=== PATIENT | female | born 1985 | race Two or more races ===

== ENCOUNTER → 2024-10-10 | Outpatient (CLI) | payer OTHER, SELFPAY ==
--- NOTE | 2024-10-10 14:00 | XR_ITS ---
Examination: Breast ultrasound, unilateral, left complete Date and time of exam: October 10, 2024 1414 hrs. Indications: Left breast palpable mass post biopsy outside examination July 2024, left breast sonogram April 14, 2024 10:00 oval mass circumscribed 3.3 x 1.5 x 3.4 cm Technique: Real-time holden scale ultrasonographic imaging performed left breast including all 4 quadrants as well as nipple retroareolar and axillary region. Findings: Retroareolar solid mass circumscribed 3.1 x 1.8 x 3.0 cm Impression: BI-RADS Category 3: Probably benign findings 3 to 6 month continued left breast sonogram follow-up strongly advised
== END | disposition home or self-care (01) ==
LOC: SDIM 13:49
PROVIDERS: PCP Family Medicine; Referring Provider Surgery; Visit Provider Surgery
DX: N63.22 Unspecified lump in the left breast, upper inner quadrant (principal)
CPT/HCPCS: 76641

== ENCOUNTER → 2024-11-15 | Outpatient (CLI) | payer OTHER, SELFPAY ==
[2024-11-15 09:53] LABS: Basophils # (Auto) 0.1 Thou/mm3 (0.0-0.2); Basophils % (Auto) 1 % (0-2.5); Eosinophils # (Auto) 0.2 Thou/mm3 (0.0-0.5); Eosinophils % (Auto) 2 % (0-10); Hematocrit 38.9 % (36.0-46.0); Hemoglobin 12.7 g/dL (12.0-16.0); Immature Granulocytes % (Auto) 0 % (0-0); Immature Granulocytes Auto 0.02 Thou/mm3 (0.00-0.00); Lymphocytes # (Auto) 1.7 Thou/mm3 (1.0-4.8); Lymphocytes % (Auto) 17 % (10-50); Mean Corpuscular HGB Conc 32.6 g/dl (31.0-37.0); Mean Corpuscular Hemoglobin 30.5 pg (25.0-35.0); Mean Corpuscular Volume 93 fL (80-100); Monocytes # (Auto) 0.7 Thou/mm3 (0.0-0.8); Monocytes % (Auto) 7 % (0-12); Neutrophils # (Auto) 7.1 Thou/mm3 (1.8-7.7); Neutrophils % (Auto) 73 % (37-80); Nucleated Red Blood Cell % 0 /100 WBC (0); Platelet Count 424 Thou/mm3 (140-440); RDW Standard Deviation 45.1 fL (36.4-46.3); Red Blood Count 4.17 Miln/mm3 (4.00-5.20); White Blood Count 9.7 Thou/mm3 (3.6-11.0)
[2024-11-15 10:09] LABS: Anion Gap 6 (7-16); BUN/Creatinine Ratio 11 Ratio (12-20); Blood Urea Nitrogen 10 mg/dL (9-23); Calcium 9.4 mg/dL (8.3-10.6); Carbon Dioxide 27.2 mMol/L (20.0-31.0); Chloride 103 mMol/L (98-107); Creatinine (Component) 0.9 mg/dL (0.6-1.3); Glucose 96 mg/dL (74-106); Osmolality,Calculated 270 (275-295); Potassium 4.6 mMol/L (3.4-5.1); Sodium 136 mMol/L (136-145); eGFR > 60 See Note
[2024-11-15 10:13] LABS: HCG,Qualitative Serum Negative
== END | disposition home or self-care (01) ==
LOC: SLAB 07:51
PROVIDERS: PCP Family Medicine; Referring Provider Surgery; Visit Provider Surgery
DX: N63.42 Unspecified lump in left breast, subareolar (principal)
CPT/HCPCS: 36415; 80048; 84703; 85025

== ENCOUNTER 2024-11-16 09:36 | Outpatient (AMB) | payer OTHER, SELFPAY ==
[2024-11-16 09:47] VITALS: BP 133/84; PULSE 79; RESP 16; TEMP 36.6; O2SAT 98; BMI 32.5
--- NOTE | 2024-11-16 09:47 | PD.RESCLINIC ---
Vital Signs 11/16/24 09:47 Height 1.7 m Height Method Stated Weight 94.12 kg Weight Measurement Method Standing Scale BMI 32.5 BP 133/84 H Blood Pressure Source Automatic Cuff Blood Pressure Location Left Upper Arm Position Sitting Respiration 16 Pulse 79 Pulse Source Monitor Temp 97.9 F Temp Source Temporal Artery Scan Pulse Oximetry (%) 98 Oxygen Delivery Method Room Air Allergies/Meds Allergies & Medications Allergies No Known Allergies Allergy (Unknown, Uncoded 11/16/24 09:48) Medication Reconciliation No Known Home Medications 11/16/24 [History Confirmed 11/16/24] PR Intake Visit Data Collection New Patient or Established: Established Patient (seen at [facility] within 3 years) Pain Present Currently: No Pain Scale Used: Dumas-Lorenz/Numerical PCP or OBGYN visit in last 3 months: No Do You Feel Safe at Home: Yes Authorities Contacted: N/A Smoking Status Smoking Status: Never smoker Immunization / Flu Flu Vaccine in the Last 12 Months: Yes Flu Vaccine Exclusion Criteria: Already Received Past Medical History Social History SMOKING STATUS: Smoking status: Never smoker Patient Portal Questionaires Social History Tobacco History Smoking Status: Never smoker Domestic Abuse History Do You Feel Safe at Home: Yes Review of Systems Report any current symptoms Only answer those that you have currently: Past Medical History Past Medical History Have you ever been diagnosed with any of the following: History of Present Illness HPI Narrative The patient is a 39-year-old female with a history of asthma, well-controlled with occasional inhaler use, who is presenting for physical clearance for a new job. She reports no current respiratory complaints, such as shortness of breath, wheezing, or cough. She uses her inhaler sporadically, typically only during periods of increased activity or exposure to known asthma triggers (e.g., dust, smoke, or allergens). There are no recent exacerbations of her asthma, and she has not required urgent care or hospitalization for asthma-related issues. Her asthma is generally well-managed, and she is able to perform daily activities without limitation. She is seeking clearance for work, which does not involve exposure to known asthma triggers or physical demands beyond her current capabilities. Review of Systems Review of Systems Narrative Review of Systems: General: Denies fever, chills, weight loss, or fatigue. Cardiovascular: Denies chest pain, palpitations, or edema. Respiratory: No shortness of breath, wheezing, cough, or hemoptysis. Asthma well-controlled with occasional inhaler use. Musculoskeletal: No joint pain or muscle weakness. Neurologic: No headaches, dizziness, or weakness. Gastrointestinal: Denies nausea, vomiting, diarrhea, or abdominal pain. Genitourinary: No dysuria, hematuria, or urinary frequency. Skin: No rashes or lesions. Endocrine: No symptoms of thyroid dysfunction or changes in appetite. Hematologic: No history of excessive bruising or bleeding. Objective/Exam Narrative Physical exam: General: Alert, well-nourished, in no acute distress. Vital Signs: BP 118/76 mmHg, HR 72 bpm, RR 16 bpm, Temp 98.6?F, SpO2 98% on room air. Head, Eyes, Ears, Nose, Throat (HEENT): PERRLA, EOMI, no nasal congestion or discharge, throat without erythema or exudate. Neck: No lymphadenopathy, thyroid normal. Cardiovascular: Regular rate and rhythm, no murmurs, rubs, or gallops. Respiratory: Clear to auscultation bilaterally, no wheezes, rales, or rhonchi. Musculoskeletal: Full range of motion in all joints, no tenderness or swelling. Neurologic: Alert and oriented x3, normal strength and sensation, no focal deficits. Skin: No rashes or lesions noted. Assessment & Plan Diagnosis / Problem List (1) Asthma: Status: Acute Qualifiers: Asthma persistence: intermittent Assessment & Plan: History of asthma, occasional inhaler use. Previous history of asthma exacerbation. Plan: ? Continue using ALBUTEROL inhaler as needed for asthma (2) Adult general medical exam: Status: Acute Assessment & Plan: Generally healthy patient with well-controlled asthma, appropriate for physical clearance for a job with no ongoing respiratory or other health concerns. Plan: As above Office Procedures [facility] Level of Care Nursing/Assessment Patient Status: Established Patient Nursing Assessment/Reassessment: Medication Reconciliation, Update PMH in EMR and Vital Signs Coordination of Care: Complex Care and Chronic Disease 1-5, Education Simp Pt/Fam and Staff clarify orders Established Patient Charge Established Patient Point Assignment: 80 Established Patient Point Charge: EP Level 3 (80-115)
== END 2024-11-16 10:04 | disposition home or self-care (01) ==
PROVIDERS: Supervising Provider Internal Medicine
DX: Z02.1 Encounter for pre-employment examination (principal); J45.909 Unspecified asthma, uncomplicated
CPT/HCPCS: 99213; G0463

== ENCOUNTER → 2025-04-14 | Outpatient (CLI) | payer OTHER, SELFPAY ==
--- NOTE | 2025-04-14 10:00 | XR_ITS ---
Examination: Breast ultrasound, unilateral, left complete Date and time of exam: April 14, 2025 1018 hours INDICATIONS: Mammogram April 26, 2024 35 mm circumscribed retroareolar mass left breast, left breast sonogram October 10, 2024 retroareolar solid mass 3.1 x 1.8 x 3.0 cm Technique: Real-time holden scale ultrasonographic imaging performed left breast including all 4 quadrants as well as nipple retroareolar and axillary region. Findings: Sonographic images left breast 4:00 nodule with cyst 7 x 6 mm 11:00 cyst 4 x 5 mm Retroareolar solid nodule 25 x 14 x 22 mm partially indistinct margins IMPRESSION: BI-RADS Category 4: Suspicious for malignancy Recommend ultrasound-guided breast biopsy of the retroareolar nodule left breast to exclude malignancy
--- NOTE | 2025-04-14 10:30 | XR_ITS ---
Examination: Diagnostic digital mammography, bilateral Computer aided detection 3-D breast Tomosynthesis, bilateral Date and time of exam: April 14, 2025 1033 hours Compared to mammograms dating to April 26, 2024 INDICATIONS: History left lumpectomy November 2024, negative Technique: Nonmagnified MLO, CC views of the breasts to been obtained, reconstructed from 3-D Tomosynthesis images. R2 computer aided detection program utilized for evaluation of suspicious masses and/or abnormal calcifications. 3-D Tomosynthesis images obtained. Findings: The breasts are heterogeneously dense, which may obscure small masses Breast biopsy marker retroareolar region left breast Increased radiodensity in the retroareolar region left breast,. Please see the left breast sonogram report April 14, 2025 Impression: BI-RADS Category 3: Probably benign findings Clinical correlation is needed as to whether the nodule in the retroareolar region left breast has been recently biopsied Continued left breast sonogram follow-up is recommended in 3 months
== END | disposition home or self-care (01) ==
PROVIDERS: Referring Provider Surgery; Visit Provider Surgery
DX: R92.333 Mammographic heterogeneous density, bilateral breasts (principal); N63.42 Unspecified lump in left breast, subareolar
CPT/HCPCS: 76641; 77062; 77066; G0279

== ENCOUNTER 2025-07-26 13:17 | Outpatient (AMB) | payer OTHER, SELFPAY ==
[2025-07-26 13:26] VITALS: BP 119/77; PULSE 86; RESP 19; TEMP 36.8; O2SAT 98; BMI 32.3
--- NOTE | 2025-07-26 13:26 | ACNOTE_ITS ---
<Statement entered by Lamberto Garrett MD - 08/02/25 14:31> Attending note: I, Lamberto Garrett MD, attest that I was physically present for the ernandez portions of the service and evaluated the patient with the resident and I reviewed and discussed the case with the resident and agree with the resident's findings and plans of care as documented above. Vital Signs 07/26/25 13:26 Height 1.7 m Height Method Stated Weight 93.497 kg Weight Measurement Method Standing Scale BMI 32.3 BP 119/77 Blood Pressure Source Automatic Cuff Blood Pressure Location Right Upper Arm Position Sitting Respiration 19 Pulse 86 Pulse Source Monitor Temp 98.2 F Temp Source Temporal Artery Scan Pulse Oximetry (%) 98 Oxygen Delivery Method Room Air Allergies/Meds Allergies & Medications Allergies No Known Allergies Allergy (Unknown, Uncoded 11/16/24 09:48) MA Intake Visit Data Collection New Patient or Established: Established Patient (seen at [facility] within 3 years) Seen by Clinical Staff ONLY (RN/MA): No Reason for Visit:: HERE FOR SCHOOL PHYSICAL Pain Present Currently: No Under Trimmer Required: No PCP or OBGYN visit in last 3 months: Yes Do You Feel Safe at Home: Yes Authorities Contacted: N/A Smoking Status Smoking Status: Never smoker Immunization / Flu Flu Vaccine in the Last 12 Months: Yes Flu Vaccine Exclusion Criteria: No Exclusion Criteria Past Medical History Social History SMOKING STATUS: Smoking status: Never smoker Patient Portal Questionaires Social History Tobacco History Smoking Status: Never smoker Domestic Abuse History Do You Feel Safe at Home: Yes Review of Systems Report any current symptoms Only answer those that you have currently: Past Medical History Past Medical History Have you ever been diagnosed with any of the following: History of Present Illness HPI Narrative 39y/o F with PMH of asthma, presenting for physical clearance for new job at a [employer]. She used albutrol prn in the past for her asthma symptoms, but haven't been using it for at least several month. Denies chest pain, palpation, SOB, abdominal pain, N/V, fevers or chills. There were no recent exacerbation of asthma, or hospitalizations. She did have nodule in her left breast, but found to be benign after biopsy. Patient can perform daily activities without limitations. She is seeking clearance for work, which does not involve exposure to known asthma triggers or physical demands beyond her current capabilities. Review of Systems Review of Systems Narrative Review of Systems: All 12 systems assessed and the patient denies unless otherwise stated in HPI Objective/Exam Narrative Physical exam: General: No acute distress, well nourished, AAO x3 Eye: PERRL, EOMI, normal conjunctiva, no scleral icterus HENT: Normocephalic, atraumatic, hearing intact to conversation at normal volume, moist oral mucosa Neck: Supple, non-tender, no JVD, no lymphadenopathy Lungs: Non-labored respirations, symmetric chest rise, Clear to auscultate bilaterally, No wheezing, rhonchi, crackles Heart: Peripheral pulses intact bilaterally, Regular Rate and Rhythm. Abdomen: Soft, non-tender, non-distended, no palpable masses Musculoskeletal: Normal range of motion and strength, No cyanosis or edema, No visible joint swelling Skin: Skin is warm, dry, no rashes or lesions. Psychiatric: Cooperative, appropriate mood and affect, Awake and alert, not agitated Neuro: Cranial nerves II-XII grossly intact. Strength 5/5 throughout. Sensations intact to light touch. Assessment & Plan Diagnosis / Problem List (1) Adult general medical exam: Status: Acute Assessment & Plan: Patient appropriate for physical clearance. No physical limitations for the job she is currently seeking. (2) Asthma: Status: Acute Qualifiers: Asthma persistence: intermittent Assessment & Plan: Patient hasn't been using albutrol for at least several months. No respiratory problems. Orders: Orders CBC Today Z00.00 - Encounter for general adult medical examination without abnormal findings Comprehensive Metabolic Panel Today Z00.00 - Encounter for general adult medical examination without abnormal findings Lipid Panel Today Z00.00 - Encounter for general adult medical examination without abnormal findings Ambulatory Hemoglobin A1C Today Z00.00 - Encounter for general adult medical examination without abnormal findings Thyroid Stimulating Hormone Today Z00.00 - Encounter for general adult medical examination without abnormal findings Office Procedures [facility] Level of Care Nursing/Assessment Patient Status: Established Patient Nursing Assessment/Reassessment: Medication Reconciliation, Update PMH in EMR and Vital Signs Coordination of Care: Complex Care and Chronic Disease 1-5, Consent,records obtained, informed consent and Staff clarify orders Established Patient Charge Established Patient Point Assignment: 70 Established Patient Point Charge: Level 2 (40-75)
== END 2025-07-26 13:51 | disposition home or self-care (01) ==
LOC: HODAHC 13:17
PROVIDERS: Supervising Provider Internal Medicine
DX: Z00.00 Encounter for general adult medical examination without abnormal findings (principal); J45.909 Unspecified asthma, uncomplicated
CPT/HCPCS: 99212; G0463

== ENCOUNTER → 2025-09-29 | Outpatient (CLI) | payer OTHER, SELFPAY ==
[2025-09-29 08:33] LABS: Basophils # (Auto) 0.1 Thou/mm3 (0.0-0.2); Basophils % (Auto) 1 % (0-2.5); Eosinophils # (Auto) 0.1 Thou/mm3 (0.0-0.5); Eosinophils % (Auto) 2 % (0-10); Hematocrit 39.6 % (36.0-46.0); Hemoglobin 13.3 g/dL (12.0-16.0); Immature Granulocytes Auto 0.03 Thou/mm3 (0.00-0.00); Lymphocytes # (Auto) 1.9 Thou/mm3 (1.0-4.8); Lymphocytes % (Auto) 27 % (10-50); Mean Corpuscular HGB Conc 33.6 g/dl (31.0-37.0); Mean Corpuscular Hemoglobin 32.3 pg (25.0-35.0); Mean Corpuscular Volume 96 fL (80-100); Monocytes # (Auto) 0.5 Thou/mm3 (0.0-0.8); Monocytes % (Auto) 7 % (0-12); Neutrophils # (Auto) 4.4 Thou/mm3 (1.8-7.7); Neutrophils % (Auto) 63 % (37-80); Nucleated Red Blood Cell # 0.00 Thou/mm3 (0.00-0.00); Nucleated Red Blood Cell % 0 /100 WBC (0); Platelet Count 332 Thou/mm3 (140-440); RDW Standard Deviation 41.5 fL (36.4-46.3); Red Blood Count 4.12 Miln/mm3 (4.00-5.20); White Blood Count 6.9 Thou/mm3 (3.6-11.0)
[2025-09-29 08:37] LABS: Alanine Aminotransferase 20 U/L (10-49); Albumin, Serum 4.4 gm/dL (3.5-5.0); Albumin/Globulin Ratio 2.3 (1.2-2.2); Alkaline Phosphatase 62 U/L (46-116); Anion Gap 6 (7-16); Aspartate Amino Transferase 24 U/L (0-34); BUN/Creatinine Ratio 8 Ratio (12-20); Bilirubin,Total 0.4 mg/dL (0.3-1.2); Blood Urea Nitrogen 6 mg/dL (9-23); Calcium 8.8 mg/dL (8.3-10.6); Calcium (Corrected) 8.8 mg/dL (8.5-10.1); Carbon Dioxide 27.1 mMol/L (20.0-31.0); Cardiac Risk Estimate 2.9 RATIO (3.7-5.6); Chloride 108 mMol/L (98-107); Cholesterol 165 mg/dL (132-200); Creatinine (Component) 0.8 mg/dL (0.6-1.3); Globulin 1.9 gm/dL (2.3-3.5); Glucose 92 mg/dL (74-106); HDL Cholesterol 56 mg/dL (40-60); LDL Cholesterol,Calculated 97 mg/dL (0-130); Osmolality,Calculated 278 (275-295); Potassium 4.1 mMol/L (3.4-5.1); Sodium 141 mMol/L (136-145); Thyroid Stimulating Hormone 1.52 uIU/mL (0.55-4.78); Total Protein 6.3 gm/dL (5.7-8.2); Triglycerides 58 mg/dL (30-150); eGFR > 60 See Note
[2025-09-29 09:10] LABS: Glucose Estimated Average 97 mg/dL (80-131); Hemoglobin A1C 5.0 % Hgb (4.8-6.0)
== END | disposition home or self-care (01) ==
DX: Z00.00 Encounter for general adult medical examination without abnormal findings (principal)
CPT/HCPCS: 36415; 80053; 80061; 83036; 84443; 85025